=== PATIENT | female | born 1970 | race Caucasian/White ===

== ENCOUNTER 2016-09-07 21:10 | Emergency (ER) | payer OTHER ==
[~2016-09-07 21:10] MED LIST: ALBUTEROL17 GM INH; ALLEGRA180 MG PO; BENADRYL25 MG PO; CLARITAN; ERY-TAB333 MG PO; LORATADINE PO; NAPROSYN500 MG PO; NO MEDICATIONS; PHENERGAN25 MG PO; PREDNISONE PO; PRILOSEC20 M1 PO; PROMETHAZINE V118 M1 PO; ROBAXIN500 MG PO; SINGULAIR; SINGULAIR PO; TYLENOL #3 PO; ZITHROMAX PO
== END 2016-09-07 21:11 | disposition home or self-care (01) ==
LOC: SED 21:10
DX: K52.9 Noninfective gastroenteritis and colitis, unspecified (principal); F17.200 Nicotine dependence, unspecified, uncomplicated; Z88.0 Allergy status to penicillin; Z88.8 Allergy status to other drugs, medicaments and biological substances
CPT/HCPCS: 99283